=== PATIENT | female | born 1935 | race Two or more races ===

== ENCOUNTER 2017-12-31 01:12 | Emergency (ER) | payer OTHER ==
[~2017-12-31] VITALS: Ht 162.6 cm; Wt 63.5 kg
[2017-12-31] MEDS ORDERED: PNEU16DI2 (01:31)
[2017-12-31] MEDS ORDERED: AVALIDE 300-121 EACH (01:31)
[2017-12-31] MEDS ORDERED: OMEPRAZOLE10 MG (01:32)
[2017-12-31] MEDS ORDERED: PAROXETINE7.5 MG (01:32)
[2017-12-31] MEDS ORDERED: XANAX0.25 MG (01:33)
== END 2017-12-31 15:06 | disposition home or self-care (01) ==
LOC: ER 01:12
DX: S01.82XA Laceration with foreign body of other part of head, initial encounter (principal); S06.6X1A Traumatic subarachnoid hemorrhage with loss of consciousness of 30 minutes or less, initial encounter; W18.2XXA Fall in (into) shower or empty bathtub, initial encounter; Y93.E1 Activity, personal bathing and showering; Y92.012 Bathroom of single-family (private) house as the place of occurrence of the external cause; Y99.8 Other external cause status

== ENCOUNTER 2018-01-04 15:11 | Emergency (ER) | payer OTHER ==
[~2018-01-04] VITALS: Ht 152.4 cm; Wt 65.8 kg
[~2018-01-04 15:11] MED LIST: AVALIDE 300-121 EACH; OMEPRAZOLE10 MG; PAROXETINE7.5 MG; PNEU16DI2; XANAX0.25 MG
[2018-01-04] MEDS ORDERED: PREVACID30 MG (15:19)
== END 2018-01-04 18:51 | disposition home or self-care (01) ==
LOC: ER 15:11
DX: S06.5X1D Traumatic subdural hemorrhage with loss of consciousness of 30 minutes or less, subsequent encounter (principal); Z48.01 Encounter for change or removal of surgical wound dressing; W18.09XD Striking against other object with subsequent fall, subsequent encounter

== ENCOUNTER 2018-01-11 16:24 | Emergency (ER) | payer OTHER ==
[~2018-01-11] VITALS: Ht 162.6 cm; Wt 66.7 kg
[~2018-01-11 16:24] MED LIST changes: +PREVACID30 MG
== END 2018-01-11 18:11 | disposition home or self-care (01) ==
LOC: ER 16:24
DX: Z48.02 Encounter for removal of sutures (principal)

== ENCOUNTER → 2021-08-28 | Emergency (ER) | payer OTHER ==
[~2021-08-28] VITALS: Ht 157.5 cm; Wt 68.0 kg
[~2021-08-28] MED LIST changes: +CEPHALEXIN500 MG PO
== END | disposition home or self-care (01) ==
LOC: ER 00:23
DX: S01.01XA Laceration without foreign body of scalp, initial encounter (principal); W18.30XA Fall on same level, unspecified, initial encounter; Y93.9 Activity, unspecified; Y92.019 Unspecified place in single-family (private) house as the place of occurrence of the external cause; Y99.9 Unspecified external cause status

== ENCOUNTER 2021-09-06 16:10 | Emergency (ER) | payer OTHER ==
[~2021-09-06] VITALS: Ht 162.6 cm; Wt 63.5 kg
== END 2021-09-06 17:09 | disposition home or self-care (01) ==
LOC: ER 16:10
DX: Z48.02 Encounter for removal of sutures (principal)